=== PATIENT | male | born 1975 | race Two or more races ===

== ENCOUNTER 2024-02-03 19:41 | Emergency (ER) | payer OTHER ==
[~2024-02-03] VITALS: Ht 170.2 cm; Wt 84.8 kg
[2024-02-03] MEDS ORDERED: FAMOTIDINE/PF 20 MG/2 ML VIAL IV PUSH STA ×2 (22:15→22:21)
[2024-02-03] MEDS ORDERED: PANTOPRAZOLE SODIUM 40 MG/VIAL VIAL IV PUSH STA (22:16)
[2024-02-03] MEDS ORDERED: METHYLPREDNISOLONE SOD SUCC 125 MG VIAL IM STA (22:18)
[2024-02-03] MEDS ORDERED: METHYLPREDNISOLONE SOD SUCC 125 MG VIAL ONE (22:22)
[2024-02-03] MEDS ORDERED: FAMOTIDINE/PF 20 MG/2 ML VIAL ONE (22:22)
== END 2024-02-03 23:15 | disposition home or self-care (01) ==
LOC: ER 19:43
DX: R07.89 Other chest pain (principal); Z88.0 Allergy status to penicillin; Z88.6 Allergy status to analgesic agent; Z91.041 Radiographic dye allergy status

== ENCOUNTER 2024-04-25 17:46 | Emergency (ER) | payer OTHER ==
[~2024-04-25] VITALS: Ht 172.7 cm; Wt 84.8 kg
[2024-04-25] MEDS ORDERED: DEXAMETHASONE SODIUM PHOSPHATE 4 MG/ML VIAL IM STA (20:25)
[2024-04-25] MEDS ORDERED: ACETAMINOPHEN 325 MG TABLET PO STA (20:27)
[2024-04-25 21:19] LABS: MEAN CELL VOLUME 86.5 fL (80.0-100.00); MEAN CORPUSCULAR HGB CONC 34.7 g/dl (32.0-36.0); PLATELET COUNT 311 K/uL (150-450); RED BLOOD COUNT 5.31 M/uL (4.00-6.00); RED CELL DISTRIBUTION WIDTH 14.2 % (11.5-14.5)
== END 2024-04-25 22:14 | disposition home or self-care (01) ==
LOC: ER 17:48
DX: M93.90 Osteochondropathy, unspecified of unspecified site (principal); R07.89 Other chest pain; Z88.0 Allergy status to penicillin; Z88.6 Allergy status to analgesic agent; Z91.041 Radiographic dye allergy status